=== PATIENT | male | born 1970 | race Caucasian/White ===

== ENCOUNTER 2016-10-20 09:04 | Emergency (ER) | payer SELFPAY ==
[2016-10-20 09:11] VITALS: BP 151/62; PULSE 60; RESP 18; TEMP 98.5; O2SAT 99
--- NOTE | 2016-10-20 09:32 | ED PDOC ---
HPI: Back Time Seen by Provider: 10/20/16 09:26 Chief Complaint (Nursing): Back Pain History Per: Patient (Mid/upper back pain worse on inspiration x 20 days. was cleaning his house with bleach 3 weeks ago and inhaled fumes. Has been having pleuritic back pain since. Denies cough or fever.) Onset/Duration Of Symptoms: Days (20) Current Symptoms Are (Timing): Still Present Quality Of Discomfort: Unable To Describe Severity: Mild Pain Scale Rating Of: 2 Previous Symptoms: Back Pain Associated Symptoms: None Exacerbating Factor(s): Other (Inspiration) Past Medical History Vital Signs: Last Vital Signs Temp 98.5 F 10/20/16 09:10 Pulse 60 10/20/16 09:10 Resp 18 10/20/16 09:10 BP 151/62 H 10/20/16 09:10 Pulse Ox 99 10/20/16 09:10 - Medical History PMH: Hypercholesterolemia Denies: Chronic Kidney Disease - Family History Family History: States: Unknown Family Hx - Immunization History Hx Tetanus Toxoid Vaccination: No Hx Influenza Vaccination: No Hx Pneumococcal Vaccination: No - Home Medications Home Medications: Ambulatory Orders Medication Instructions Recorded Ciprofloxacin/Ciprofloxa HCl 500 mg PO BID #10 tab 07/14/15 [Ciprofloxacin] [place]-3 Fatty Acids/Fish Oil 1 cap PO BID 07/14/15 [[place] 3 Fish Oil Softgel] Simvastatin [Zocor] 40 mg PO DAILY 07/14/15 Tamsulosin [Flomax] 0.4 mg PO DAILY #10 cap 07/14/15 Albuterol HFA [Ventolin HFA 90 2 puff IH Q4H #1 puff 10/20/16 mcg/actuation (8 g)] Naproxen [Naprosyn] 500 mg PO Q12H #20 tab 10/20/16 - Allergies Allergies/Adverse Reactions: Allergies Allergy/AdvReac Type Severity Reaction Status Date / Time shrimp Allergy Severe ITCHING Uncoded 07/14/15 10:08 Review of Systems Respiratory: Positive for: Pleuritic Pain. Negative for: Cough, Shortness of Breath Musculoskeletal: Positive for: Back Pain Physical Exam - Physical Exam Appears: Positive for: Well, Non-toxic, No Acute Distress Skin: Positive for: Normal Color, Warm, DRY Cardiovascular/Chest: Positive for: Regular Rate, Rhythm Respiratory: Positive for: CNT, Normal Breath Sounds Back: Positive for: Normal Inspection. Negative for: Vertebral Tenderness - ECG O2 Sat by Pulse Oximetry: 99 Disposition - Clinical Impression Clinical Impression: Pleuritic chest pain - Patient ED Disposition Is Patient to be Admitted: No Counseled Patient/Family Regarding: Studies Performed, Diagnosis, Need For Followup, Rx Given - Disposition Referrals: [facility] [Outside] Disposition: Routine/Home Disposition Time: 10:02 Condition: FAIR Prescriptions: Albuterol HFA [Ventolin HFA 90 mcg/actuation (8 g)] 2 puff IH Q4H #1 puff Naproxen [Naprosyn] 500 mg PO Q12H #20 tab Instructions: Pleurisy (ED) Print Language: DUTCH
--- NOTE | 2016-10-20 10:06 | RAD ---
HISTORY: cough COMPARISON: Chest x-ray performed 12/29/12 TECHNIQUE: Chest PA and lateral FINDINGS: LUNGS: No focal consolidation. Please note that chest x-ray has limited sensitivity for the detection of pulmonary masses. PLEURA: No significant pleural effusion identified. No definite pneumothorax . CARDIOVASCULAR: The cardiomediastinal silhouette appears within normal limits of size. OSSEOUS STRUCTURES: No acute osseous abnormality identified. VISUALIZED UPPER ABDOMEN: Unremarkable. OTHER FINDINGS: None. IMPRESSION: No focal consolidation, significant pleural effusion, or definite pneumothorax identified.
== END 2016-10-20 10:20 | disposition home or self-care (01) ==
LOC: H.ER 09:04
DX: R07.1 Chest pain on breathing (principal)

== ENCOUNTER 2017-01-07 10:08 | Emergency (ER) | payer SELFPAY ==
[2017-01-07 10:14] VITALS: BP 120/74; PULSE 61; TEMP 97; O2SAT 100; BMI 24.9
[2017-01-07 10:44] VITALS: RESP 18
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
== END 2017-01-07 11:10 | disposition home or self-care (01) ==
LOC: H.ER 10:08
DX: M62.838 Other muscle spasm (principal)

== ENCOUNTER 2017-11-26 08:42 | Emergency (ER) | payer OTHER, SELFPAY ==
[2017-11-26 09:01] VITALS: TEMP 98.3; O2SAT 99
[2017-11-26 09:02] VITALS: BMI 24.1
--- NOTE | 2017-11-26 09:17 | ED PDOC ---
HPI: Back Time Seen by Provider: 11/26/17 09:05 Chief Complaint (Nursing): Back Pain Chief Complaint (Provider): Back Pain History Per: Patient History/Exam Limitations: no limitations Onset/Duration Of Symptoms: Days (x2 weeks) Current Symptoms Are (Timing): Still Present Additional Complaint(s): 47 year old male presents to the ED for evaluation of lower back pain that radiates down both his legs, and occasionally upwards, onset two weeks ago. Patient notes that he works on his feet all day long, but denies any weakness or paresthesia. PMD: none provided Past Medical History Reviewed: Historical Data, Nursing Documentation, Vital Signs Vital Signs: Last Vital Signs Temp 98.3 F 11/26/17 09:01 Pulse 55 L 11/26/17 09:01 Resp 16 11/26/17 09:01 BP 123/73 11/26/17 09:01 Pulse Ox 99 11/26/17 09:01 - Medical History PMH: Hypercholesterolemia Denies: Chronic Kidney Disease - Surgical History Surgical History: No Surg Hx - Family History Family History: States: Unknown Family Hx - Immunization History Hx Tetanus Toxoid Vaccination: No Hx Influenza Vaccination: No Hx Pneumococcal Vaccination: No - Home Medications Home Medications: Ambulatory Orders Medication Instructions Recorded Ciprofloxacin/Ciprofloxa HCl 500 mg PO BID #10 tab 07/14/15 [Ciprofloxacin] [place]-3 Fatty Acids/Fish Oil 1 cap PO BID 07/14/15 [[place] 3 Fish Oil Softgel] Simvastatin [Zocor] 40 mg PO DAILY 07/14/15 Tamsulosin [Flomax] 0.4 mg PO DAILY #10 cap 07/14/15 Albuterol HFA [Ventolin HFA 90 2 puff IH Q4H #1 puff 10/20/16 mcg/actuation (8 g)] Naproxen [Naprosyn] 500 mg PO Q12H #20 tab 10/20/16 Cyclobenzaprine [Cyclobenzaprine 10 mg PO TID #30 tab 01/07/17 HCl] Naproxen [Naprosyn] 500 mg PO BID PRN #20 tablet 01/07/17 Naproxen [Naprosyn] 500 mg PO Q12H #20 tab 11/26/17 - Allergies Allergies/Adverse Reactions: Allergies Allergy/AdvReac Type Severity Reaction Status Date / Time shrimp Allergy Severe ITCHING Uncoded 11/26/17 09:06 Review of Systems ROS Statement: Except As Marked, All Systems Reviewed And Found Negative Musculoskeletal: Positive for: Back Pain (radiating down both legs, sometimes radiating upwards) Neurological: Negative for: Weakness, Other (paresthesia) Physical Exam - Reviewed Nursing Documentation Reviewed: Yes Vital Signs Reviewed: Yes - Physical Exam Appears: Positive for: No Acute Distress Head Exam: Positive for: ATRAUMATIC, NORMOCEPHALIC Skin: Positive for: Normal Color, Warm, Dry Eye Exam: Positive for: Normal appearance Neck: Positive for: Normal, Painless ROM, Supple Cardiovascular/Chest: Positive for: Regular Rate, Rhythm Respiratory: Positive for: Normal Breath Sounds. Negative for: Accessory Muscle Use, Respiratory Distress Gastrointestinal/Abdominal: Positive for: Normal Exam, Soft. Negative for: Tenderness Back: Positive for: Normal Inspection. Negative for: L CVA Tenderness, R CVA Tenderness, Vertebral Tenderness, Other (deformity) Extremity: Positive for: Normal ROM Neurologic/Psych: Positive for: Alert, Oriented (x3). Negative for: Motor/ Sensory Deficits - ECG O2 Sat by Pulse Oximetry: 99 (RA) Pulse Ox Interpretation: Normal Medical Decision Making Medical Decision Making: Time: 09:12 Initial Plan: --LS Spine AP/LAT XR Scribe Attestation: Documented by Anna Marie Bocanegra, acting as a scribe for Jose Soni MD. Provider Scribe Attestation: All medical record entries made by the Scribe were at my direction and personally dictated by me. I have reviewed the chart and agree that the record accurately reflects my personal performance of the history, physical exam, medical decision making, and the department course for this patient. I have also personally directed, reviewed, and agree with the discharge instructions and disposition. Disposition - Clinical Impression Clinical Impression: Back strain - Patient ED Disposition Is Patient to be Admitted: No Counseled Patient/Family Regarding: Studies Performed, Diagnosis, Need For Followup, Rx Given - Disposition Referrals: [facility] [place] [Outside] Disposition: Routine/Home Disposition Time: 09:37 Condition: FAIR Prescriptions: Naproxen [Naprosyn] 500 mg PO Q12H #20 tab Instructions: Low Back Pain in Adults, Muscle Strain (DC) Forms: [employer] (Fijian) Print Language: UKRAINIAN
[2017-11-26 10:06] VITALS: BP 124/80; PULSE 59; RESP 18
--- NOTE | 2017-11-26 11:49 | RAD ---
Date of service: 11/26/2017 PROCEDURE: Radiographs of the Lumbar Spine. HISTORY: pain COMPARISON: No prior. FINDINGS: BONES: Normal alignment. No listhesis. No fracture. DISC SPACES: Unremarkable. OTHER FINDINGS: None. IMPRESSION: Unremarkable radiographs of the lumbar spine.
== END 2017-11-26 10:06 | disposition home or self-care (01) ==
LOC: H.ER 08:42
DX: S39.012A Strain of muscle, fascia and tendon of lower back, initial encounter (principal); E78.00 Pure hypercholesterolemia, unspecified

== ENCOUNTER 2018-08-07 05:54 | Emergency (ER) | payer OTHER ==
[2018-08-07 05:54] VITALS: BMI 24.1
[2018-08-07 06:14] VITALS: RESP 18; O2SAT 100
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
[2018-08-07 08:23] LABS: BASO % 0.4 % (0.0-2.0); EOS # 0.1 K/uL (0.0-0.7); EOS % 1.1 % (0.0-4.0); HEMOGLOBIN 14.9 g/dL (12.0-18.0); LYMPH # 1.3 K/uL (1.0-4.3); LYMPH % 23.8 % (20.0-40.0); MEAN CELL VOLUME 89.4 fl (80.0-94.0); MEAN CORPUSCULAR HEMOGLOBIN 29.9 pg (27.0-31.0); MEAN CORPUSCULAR HGB CONC 33.5 g/dL (33.0-37.0); MEAN PLATELET VOLUME 8.6 fl (7.2-11.7); MONO # 0.5 K/uL (0.0-0.8); MONO % 8.1 % (0.0-10.0); NEUT # 3.7 K/uL (1.8-7.0); NEUT % 66.6 % (50.0-75.0); NRBC % 0.1 % (0.0-0.0); RBC 4.98 Mil/uL (4.40-5.90); RED CELL DISTRIBUTION WIDTH 12.5 % (11.5-14.5); WHITE BLOOD COUNT 5.6 K/uL (4.8-10.8)
[2018-08-07 08:33] LABS: BLOOD UREA NITROGEN 18 mg/dl (9-20); CALCIUM 9.8 mg/dL (8.4-10.2); GFR NON-AFRICAN AMERICAN > 60
--- NOTE | 2018-08-07 11:24 | CT ---
Date of service: 08/07/2018 PROCEDURE: CT Abdomen and Pelvis without intravenous contrast HISTORY: left flank pain COMPARISON: 06/16/2016. CT abdomen and pelvis. TECHNIQUE: Unenhanced. Neither IV nor oral contrast administered Radiation dose: Total exam DLP = 508.40 mGy-cm. This CT exam was performed using one or more of the following dose reduction techniques: Automated exposure control, adjustment of the mA and/or kV according to patient size, and/or use of iterative reconstruction technique. FINDINGS: LOWER THORAX: Unremarkable. LIVER: Unremarkable. No gross lesion or ductal dilatation. GALLBLADDER AND BILE DUCTS: Cholelithiasis without CT evidence of acute cholecystitis. PANCREAS: Unremarkable. No gross lesion or ductal dilatation. SPLEEN: Unremarkable. ADRENALS: Unremarkable. No mass. KIDNEYS AND URETERS: Right kidney and ureter unremarkable. No hydronephrosis. No solid mass. Left kidney: Solitary 3 mm nonobstructing midpole calculus. Right collecting system and right ureter are nondilated. VASCULATURE: Unremarkable. No aortic aneurysm. No atherosclerotic calcification or mural plaque present. BOWEL: Unremarkable. No obstruction. No gross mural thickening. APPENDIX: Unremarkable. Normal appendix. PERITONEUM: Unremarkable. No free fluid. No free air. LYMPH NODES: Unremarkable. No enlarged lymph nodes. BLADDER: Unremarkable. REPRODUCTIVE: Unremarkable. BONES: No acute fracture. OTHER FINDINGS: None. IMPRESSION: Solitary nonobstructing calculus midpole left kidney [address] evidence of acute cholecystitis.
[2018-08-07 13:58] VITALS: BP 117/75; PULSE 52; TEMP 97.9
== END 2018-08-07 12:40 | disposition home or self-care (01) ==
LOC: H.ER 05:54
DX: N20.0 Calculus of kidney (principal); M54.5 Low back pain; E78.00 Pure hypercholesterolemia, unspecified
CPT/HCPCS: 74176; 80048; 85025; 96374; 99285; J1885

== ENCOUNTER 2018-08-21 09:49 | Emergency (ER) | payer SELFPAY ==
[2018-08-21 09:53] VITALS: RESP 18
[2018-08-21 09:54] VITALS: BMI 26.6
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
--- NOTE | 2018-08-21 12:47 | CT ---
Date of service: 08/21/2018 PROCEDURE: CT Lumbar Spine without contrast HISTORY: Lower back and leg pain. COMPARISON: None available. TECHNIQUE: Axial computed tomography images were obtained of the lumbar spine without the use of intravenous contrast. Coronal and sagittal reformatted images were created and reviewed. Radiation dose: Total exam DLP = 421.74 mGy-cm. This CT exam was performed using one or more of the following dose reduction techniques: Automated exposure control, adjustment of the mA and/or kV according to patient size, and/or use of iterative reconstruction technique. FINDINGS: VERTEBRAE: No acute compression fractures no retropulsed fragments. Vertebral bodies exhibit normal stature. Vertebral bodies and facets normally aligned. . DISCS/SPINAL CANAL/NEURAL FORAMINA: Disc space heights are relatively maintained. L1-2: There is adequate disc height.. There appears to be a small proximal left foraminal disc herniation.. Central canal and exit foramina adequate.. L2-3: Disc space height maintained. No disc herniation or significant disc bulge. Facet joints are slightly overgrown. Central canal and exit foramina adequate.. L3-4: Disc space height maintained. No disc herniation or significant disc bulge. Facet joints are slightly overgrown. Central canal and exit foramina adequate. L4-5: Disc space height maintained. There is a broad-based though asymmetric medium-sized disc bulge that is larger on the left than right with some extension into the proximal inferior margin of the left exit foramen.. The there is also hypertrophic facet joint changes and buckled ligamentum flavum. There is moderate bilateral lateral recess, mild central canal narrowing and compressive of the ventral surface of the thecal sac left greater than right.. Proximal exit foramina are marginal to minimally narrowed.. L5-S1: Adequate disc height. No disc herniation or significant disc bulge. Small central and bilateral disc bulge results in minor compressive effects on the ventral surfaces of the descending S1 nerve roots and the thecal sac. The overall central canal appears adequate. Facets are hypertrophic. Proximal exit foramina marginal to mildly narrowed more so on the right side. PARASPINAL SOFT TISSUES: Unremarkable. OTHER FINDINGS: Note is made of a small elliptical E shaped sclerotic lesion in the left iliac bone that nonspecific and may represent a small bone island or osteoma. IMPRESSION: No acute fractures. Mild multilevel degenerative spondylosis most notably affecting the L4-L5 level as detailed above.
[2018-08-21 13:36] VITALS: BP 134/75; PULSE 60; TEMP 98.4; O2SAT 100
== END 2018-08-21 13:34 | disposition home or self-care (01) ==
LOC: H.ER 09:49
DX: M51.36 Other intervertebral disc degeneration, lumbar region (principal); M47.896 Other spondylosis, lumbar region; M54.5 Low back pain
CPT/HCPCS: 72131; 96372; 99284; J1885